=== PATIENT | female | born 1960 | race Caucasian/White ===

== ENCOUNTER 2017-08-10 18:58 | Emergency (ER) | payer BC ==
[2017-08-10 20:40] VITALS: BP 128/81
[2017-08-10] MEDS ORDERED: Fluorescein Sodium TOPICAL* 1 MG TEST OPHTHALMIC ONE (20:47)
[2017-08-10] MEDS ORDERED: BSS OPTH.SOL* BTL OPHTHALMIC ONE (20:47)
[2017-08-10] MEDS ORDERED: Fluorescein Sodium TOPICAL* 1 MG TEST ONE (21:01)
[2017-08-10] MEDS ORDERED: Ciprofloxacin 0.3% OPTH.SOL* 2.5 ML BTL BOTH EYES ONE (21:05)
--- NOTE | 2017-08-10 21:11 | UC ---
Eye Complaint HPI - HPI Summary HPI Summary: awoke with itchy red right eye now going to left eye-wore contacts yesterday but did not sleep in them - History of Current Complaint Chief Complaint: UCEye Stated Complaint: POSS. PINK EYE Time Seen by Provider: 08/10/17 20:30 Hx Obtained From: Patient ?: No Onset/Duration: Sudden Onset, Lasting Days - 1 Severity Initially: Mild Severity Currently: Moderate Location of Injury: Conjunctiva Aggravating Factor(s): Nothing Alleviating Factor(s): Nothing Associated Signs And Symptoms: Positive: Drainage (Purulent) - Allergies/Home Medications Allergies/Adverse Reactions: Allergies Allergy/AdvReac Type Severity Reaction Status Date / Time Erythromycin AdvReac Diarrhea Verified 08/10/17 20:40 Home Medications: Home Medications Amitriptyline TAB* [Elavil TAB*] 10 mg PO BEDTIME 08/10/17 [History Confirmed ] Diltiazem HCl Coated Beads [Cardizem 180 MG LA] 180 mg PO DAILY 08/10/17 [ History Confirmed 08/10/17] PMH/Surg Hx/FS Hx/Imm Hx Previously Healthy: No Cardiovascular History: Hypertension - Surgical History Surgical History: Yes Surgery Procedure, Year, and Place: tonsillectomy. breast bx-benign - Family History Known Family History: Positive: None - Social History Occupation: Works From/At Home Lives: With Family Alcohol Use: Rare Substance Use Type: None Smoking Status (MU): Never Smoked Tobacco - Immunization History Most Recent Influenza Vaccination: [id number] Review of Systems Constitutional: Negative Skin: Negative Eyes: Drainage, Eye Redness ENT: Negative Respiratory: Negative Cardiovascular: Negative Gastrointestinal: Negative Genitourinary: Negative Motor: Negative Neurovascular: Negative Musculoskeletal: Negative Neurological: Negative Psychological: Negative Is Patient Immunocompromised?: No All Other Systems Reviewed And Are Negative: Yes Physical Exam Triage Information Reviewed: Yes Appearance: Well-Appearing, No Pain Distress, Well-Nourished Vital Signs: Initial Vital Signs Temp 97.7 F 08/10/17 20:36 Pulse 83 08/10/17 20:36 Resp 16 08/10/17 20:36 BP 128/81 08/10/17 20:36 Pulse Ox 100 08/10/17 20:36 Vital Signs Reviewed: Yes Eye Exam: Normal, Other Eyes: Positive: Conjunctiva Inflamed - ou, Discharge - ou ENT Exam: Normal ENT: Positive: Normal ENT inspection, Hearing grossly normal, Pharynx normal. Negative: Nasal congestion, Tonsillar swelling, Tonsillar exudate, Trismus, Muffled voice, Hoarse voice, Dental tenderness, Sinus tenderness Dental Exam: Normal Neck exam: Normal Neck: Positive: Supple, Nontender, No Lymphadenopathy Respiratory Exam: Normal Respiratory: Positive: Chest non-tender, No respiratory distress, No accessory muscle use Cardiovascular Exam: Normal Cardiovascular: Positive: RRR, Brisk Capillary Refill Musculoskeletal Exam: Normal Musculoskeletal: Positive: Strength Intact, ROM Intact, No Edema Neurological Exam: Normal Neurological: Positive: Alert, Muscle Tone Normal Psychological Exam: Normal Psychological: Positive: Normal Response To Family, Age Appropriate Behavior Skin Exam: Normal Re-Evaluation - Re-Evaluation First Eval Change: Improved - tolerated erika. staining well bilaterally, no dye uptake noted Eye Complaint Course/Dx - Course Course Of Treatment: Cipro drops, no contacts follow with optho prn - Differential Dx/Diagnosis Provider Diagnoses: B/L conjuctivitis Discharge - Discharge Plan Condition: Stable Disposition: HOME Patient Education Materials: How to Use Eye Drops (ED), Conjunctivitis (ED) Referrals: Miriam Robertson MD [Primary Care Provider] - Additional Instructions: No contacts until eye drops have finished Follow with eye doctor if worsens in anyway JOHNSON or does not significantly improve in 24-48 hours
== END 2017-08-10 21:30 | disposition home or self-care (01) ==
LOC: UCCORT 18:58
DX: H10.33 Unspecified acute conjunctivitis, bilateral (principal); I10 Essential (primary) hypertension; Z88.1 Allergy status to other antibiotic agents
CPT/HCPCS: 99212; A9270-GY; G0463